=== PATIENT | female | born 1980 | race African-American/Black ===

== ENCOUNTER 2016-07-11 18:39 | Emergency (ER) | payer OTHER ==
--- NOTE | 2016-07-11 19:00 | PDOC ---
Rapid Medical Evaluation Time Seen by Provider: 07/11/16 18:44 Medical Evaluation: 07/11/16 18:59 Pt does not want to be seen at this time
== END 2016-07-11 19:41 | disposition left against medical advice (07) ==
LOC: JER 18:39
DX: Z53.21 Procedure and treatment not carried out due to patient leaving prior to being seen by health care provider (principal)
CPT/HCPCS: 99281-25

== ENCOUNTER 2022-05-01 15:56 | Inpatient (IN) | payer OTHER ==
[2022-05-01] MEDS ORDERED: RAPID SEQUENCE INTUBATION KIT NR ONE (16:00)
[2022-05-01] MEDS ORDERED: MAGNESIUM 1GM/D5W - 1 GM/100 ML IVPB IVPB ONE (16:00)
[2022-05-01] MEDS ORDERED: ALBUTEROL SO4 2.5/IPRATROPIUM 0.5 INH SOL 3 ML VIAL.NEB. NEB ONE ×2 (16:00→20:13)
[2022-05-01] MEDS ORDERED: KETAMINE HCL 500 MG/10 ML VIAL ONE (16:01)
[2022-05-01] MEDS ORDERED: PROPOFOL 1,000,000 MCG/100 ML VIAL ONE (16:14)
[2022-05-01 16:22] LABS: VENOUS BASE EXCESS -8.1 mmol/L (-2-2); VENOUS O2 SATURATION 33.2 % (70-80)
[2022-05-01] MEDS ORDERED: KETAMINE HCL 200 MG/20 ML VIAL IVPUSH ONE (16:23)
[2022-05-01] MEDS ORDERED: ROCURONIUM BROMIDE 50 MG/5 ML VIAL IV ONE (16:24)
[2022-05-01] MEDS ORDERED: EPINEPHrine/PF 1 MG/1 ML (1:1,000) AMPULE ONE (16:24)
[2022-05-01] MEDS ORDERED: DEXAMETHASONE SOD PHOSPHATE 10 MG/1 ML VIAL ONE (16:25)
[2022-05-01] MEDS: PROPOFOL 1,000,000 MCG/100 ML VIAL IVPB SCH (16:30)
[2022-05-01] MEDS: ALBUTEROL SO4 2.5/IPRATROPIUM 0.5 INH SOL 3 ML VIAL.NEB. NEB SCH ×5 (16:30→20:01)
[2022-05-01 16:32] LABS: VENOUS PCO2 > 148.5 mmHg (38-52); VENOUS PH 6.885 (7.310-7.410)
[2022-05-01 16:33] LABS: BASO % 0.5 % (0-2.0); EOS % 13.5 % (0-4.5); HEMATOCRIT 44.1 % (32.4-45.2); HEMOGLOBIN 13.9 GM/dL (10.7-15.3); LYMPH % 35.1 % (8-40); MCH 29.6 pg (25.7-33.7); MCHC 31.5 g/dl (32.0-36.0); MEAN CELL VOLUME 93.8 fl (80-96); MEAN PLT VOLUME 9.2 fl (7.5-11.1); MONO % 8.3 % (3.8-10.2); NEUT % 42.6 % (42.8-82.8); PLATELET COUNT 254 10^3/uL (134-434); RDW 14.5 % (11.6-15.6); WHITE BLOOD COUNT 9.2 K/mm3 (4.0-10.0)
[2022-05-01] MEDS ORDERED: methylPREDNISolone NA SUCC 125 MG/2 ML VIAL IVPUSH ONE (16:37)
[2022-05-01] MEDS ORDERED: MAGNESIUM SULF 50% (8.12 MEQ/2 ML-1 GM VIAL) IVPB ONE (16:37)
[2022-05-01 16:38] LABS: INR 0.92 (0.83-1.09); PROTHROMBIN TIME (PATIENT) 10.6 SEC (9.7-13.0)
[2022-05-01 16:40] LABS: ACTIVATED PTT 31.4 SECONDS (25.2-36.5)
[2022-05-01 16:43] LABS: CALCIUM 9.5 mg/dL (8.5-10.1)
[2022-05-01 16:44] LABS: ALBUMIN 4.3 g/dl (3.4-5.0); BLOOD UREA NITROGEN 11.9 mg/dL (7-18); MAGNESIUM 2.6 mg/dL (1.8-2.4)
[2022-05-01 16:47] LABS: CREATININE 0.7 mg/dL (0.55-1.3)
[2022-05-01 16:49] LABS: BILIRUBIN,TOTAL 0.6 mg/dL (0.2-1); TOT PROT 7.8 g/dl (6.4-8.2)
[2022-05-01 17:24] LABS: ARTERIAL BLD GAS O2 SATURATION 98.7 % (95-98); ARTERIAL BLOOD GAS BASE EXCESS -14.3 mmol/L (-2-2); ARTERIAL BLOOD GAS PO2 269.3 mmHg (80-100)
[2022-05-01] MEDS ORDERED: ALBUTEROL SO4 0.083% IH SOL 2.5 MG/3 ML VIAL.NEB. NEB PRN (17:30)
[2022-05-01 17:31] LABS: ARTERIAL BLOOD GAS PCO2 > 148.50 mmHg (35-45); ARTERIAL BLOOD GAS pH 6.723 (7.350-7.450)
[2022-05-01] MEDS: SODIUM CHLORIDE 1,000 ML IV SCH (17:31)
[2022-05-01 17:36] LABS: ALLENS TEST POSITIVE
[2022-05-01 17:38] LABS: VENT MODE V/AC; VENT RATE 12
[2022-05-01] MEDS ORDERED: SODIUM BICARBONATE 8.4% 50 MEQ/50 ML VIAL IVPUSH ONE (17:43)
[2022-05-01] MEDS ORDERED: SODIUM BICARBONATE 8.4% 50 MEQ/50 ML VIAL ONE (17:55)
[2022-05-01] MEDS ORDERED: hydrALAZINE HCL 20 MG/ML VIAL IVPUSH PRN ×2 (18:00→18:52)
[2022-05-01 18:13] LABS: EPI CELLS 15 /uL (0-25.1); HYALINE CASTS 1 /uL (0-3.1); PH,URINE 6.5 (5.0-8.0); URINE APPEARANCE CLEAR; URINE BACTERIA 97 /uL (0-1359); URINE BILIRUBIN NEGATIVE (NEGATIVE); URINE COLOR YELLOW; URINE GLUCOSE (UA) 2+ (NEGATIVE); URINE KETONE NEGATIVE (NEGATIVE); URINE LEUK ESTERASE NEGATIVE (NEGATIVE); URINE NITRITE NEGATIVE (NEGATIVE); URINE PROTEIN 2+ (NEGATIVE); URINE RBC 10 /uL (0-23.9); URINE WBC 25 /uL (0-25.8)
[2022-05-01] MEDS ORDERED: MIDAZOLAM HCL 5 MG/1 ML Single Dose Vial ONE ×2 (18:22→19:02)
[2022-05-01 18:54] LABS: ARTERIAL BLD GAS O2 SATURATION 97.4 % (95-98); ARTERIAL BLOOD GAS BASE EXCESS -0.5 mmol/L (-2-2); ARTERIAL BLOOD GAS PO2 114.5 mmHg (80-100); ARTERIAL BLOOD GAS pH 7.251 (7.350-7.450)
[2022-05-01 18:55] LABS: ALLENS TEST POSITIVE
[2022-05-01 18:56] LABS: VENT MODE V/AC; VENT RATE 20
[2022-05-01] MEDS ORDERED: MIDAZOLAM HCL 5 MG/1 ML Single Dose Vial IVPUSH ONE (19:00)
[2022-05-01] MEDS ORDERED: MIDAZOLAM IN 0.9 % SOD.CHLORID 1 MG/1 ML PLAST..BAG ONE (19:03)
[2022-05-01] MEDS: MIDAZOLAM IN 0.9 % SOD.CHLORID 100 MG/100 ML PLAST..BAG IVPB SCH (19:13)
[2022-05-01] MEDS: DEXMEDETOMIDINE PREMIX 400 MCG/100 ML BAG IVPB SCH (20:28)
[2022-05-01] MEDS: BUDESONIDE/FORMETEROL FUMARATE 160/4.5 mcg INHALER IH SCH (21:18)
[2022-05-01] MEDS: MUPIROCIN 2% TOPICAL OINTMENT FOR DECOLONIZATION NS SCH (21:18)
[2022-05-01] MEDS: CHLORHEXIDINE GLUCONATE 4% CLEANSER FOR DECOLONIZATION TP SCH (21:18)
[2022-05-01 22:07] LABS: ARTERIAL BLD GAS O2 SATURATION 97.7 % (95-98); ARTERIAL BLOOD GAS BASE EXCESS 0.5 mmol/L (-2-2); ARTERIAL BLOOD GAS PO2 112.4 mmHg (80-100); ARTERIAL BLOOD GAS pH 7.325 (7.350-7.450)
[2022-05-01 22:08] LABS: ALLENS TEST POSITIVE
[2022-05-01 22:09] LABS: VENT MODE A/C; VENT RATE 20
[2022-05-02] MEDS: MIDAZOLAM IN 0.9 % SOD.CHLORID 100 MG/100 ML PLAST..BAG IVPB SCH (02:47)
[2022-05-02 05:56] LABS: ARTERIAL BLD GAS O2 SATURATION 96.3 % (95-98); ARTERIAL BLOOD GAS BASE EXCESS 0.6 mmol/L (-2-2); ARTERIAL BLOOD GAS PO2 88.4 mmHg (80-100)
[2022-05-02 06:00] LABS: ALLENS TEST POSITIVE; VENT MODE A/C; VENT RATE 22
[2022-05-02] MEDS: ALBUTEROL SO4 2.5/IPRATROPIUM 0.5 INH SOL 3 ML VIAL.NEB. NEB SCH ×4 (08:05→20:05)
[2022-05-02 08:28] LABS: HEMATOCRIT 36.4 % (32.4-45.2); HEMOGLOBIN 11.8 GM/dL (10.7-15.3); MCH 29.7 pg (25.7-33.7); MCHC 32.3 g/dl (32.0-36.0); MEAN CELL VOLUME 91.9 fl (80-96); PLATELET COUNT 187 10^3/uL (134-434); RBC 3.96 M/mm3 (3.60-5.2); RDW 14.2 % (11.6-15.6); WHITE BLOOD COUNT 6.9 K/mm3 (4.0-10.0)
[2022-05-02 08:36] LABS: CALCIUM 8.1 mg/dL (8.5-10.1); MAGNESIUM 2.2 mg/dL (1.8-2.4)
[2022-05-02 08:37] LABS: BLOOD UREA NITROGEN 12.6 mg/dL (7-18)
[2022-05-02 08:38] LABS: CREATININE 0.7 mg/dL (0.55-1.3); PHOSPHOROUS 2.3 mg/dL (2.5-4.9)
[2022-05-02 08:39] LABS: TOT PROT 6.3 g/dl (6.4-8.2)
[2022-05-02 08:40] LABS: BILIRUBIN,TOTAL 0.3 mg/dL (0.2-1)
[2022-05-02 08:42] LABS: ALBUMIN 3.4 g/dl (3.4-5.0)
[2022-05-02] MEDS ORDERED: ONDANSETRON 4 MG/2 ML VIAL IVPUSH PRN (08:45)
[2022-05-02] MEDS: methylPREDNISolone NA SUCC 40 MG/1 ML VIAL IVPUSH SCH ×3 (10:01→21:43)
[2022-05-02] MEDS: PANTOPRAZOLE SODIUM 40 MG VIAL IVPUSH SCH (10:01)
[2022-05-02] MEDS: ENOXAPARIN NA (PORCINE) 40 MG/0.4 ML DISP.SYRIN SQ SCH (10:01)
[2022-05-02] MEDS: BUDESONIDE/FORMETEROL FUMARATE 160/4.5 mcg INHALER IH SCH (10:02)
[2022-05-02] MEDS: SODIUM CHLORIDE 1,000 ML IV SCH ×2 (10:02→23:49)
[2022-05-02] MEDS: MUPIROCIN 2% TOPICAL OINTMENT FOR DECOLONIZATION NS SCH ×2 (10:04→22:00)
[2022-05-02] MEDS ORDERED: hydrALAZINE HCL 20 MG/ML VIAL IVPUSH PRN (13:56)
[2022-05-02] MEDS: PROPOFOL 1,000,000 MCG/100 ML VIAL IVPB SCH ×2 (15:12→23:49)
[2022-05-02] MEDS ORDERED: NAPH,MB-DB/K PH,MBDB POWDER PACKET PO ONE (15:19)
[2022-05-02] MEDS: FENTANYL NS IVPB 500 MCG/100 ML BAG IVPB SCH ×2 (17:15→23:50)
[2022-05-02] MEDS ORDERED: MIDAZOLAM IN 0.9 % SOD.CHLORID 0 MG/0 ML PLAST..BAG ONE (21:14)
[2022-05-02] MEDS ORDERED: MIDAZOLAM HCL 2 MG/2 ML SINGLE DOSE VIAL IVPUSH ONE (21:21)
[2022-05-02] MEDS: DEXMEDETOMIDINE PREMIX 400 MCG/100 ML BAG IVPB SCH (21:42)
[2022-05-02] MEDS: CHLORHEXIDINE GLUCONATE 4% CLEANSER FOR DECOLONIZATION TP SCH (22:00)
[2022-05-03] MEDS: methylPREDNISolone NA SUCC 40 MG/1 ML VIAL IVPUSH SCH ×3 (05:37→21:24)
[2022-05-03] MEDS: PROPOFOL 1,000,000 MCG/100 ML VIAL IVPB SCH (05:49)
[2022-05-03] MEDS: DEXMEDETOMIDINE PREMIX 400 MCG/100 ML BAG IVPB SCH (06:57)
[2022-05-03] MEDS: ALBUTEROL SO4 2.5/IPRATROPIUM 0.5 INH SOL 3 ML VIAL.NEB. NEB SCH ×4 (07:39→20:35)
[2022-05-03 07:49] LABS: HEMATOCRIT 36.3 % (32.4-45.2); HEMOGLOBIN 11.7 GM/dL (10.7-15.3); MCH 29.9 pg (25.7-33.7); MCHC 32.2 g/dl (32.0-36.0); MEAN CELL VOLUME 92.7 fl (80-96); MEAN PLT VOLUME 8.7 fl (7.5-11.1); PLATELET COUNT 179 10^3/uL (134-434); RBC 3.92 M/mm3 (3.60-5.2); RDW 14.4 % (11.6-15.6); WHITE BLOOD COUNT 13.1 K/mm3 (4.0-10.0)
[2022-05-03 09:08] LABS: ANISOCYTOSIS 0; HELMET CELLS 0; HOWELL-JOLLY BODIES 0; MACROCYTOSIS 0; OVALOCYTE 0; ROULEAU 0; SICKELED CELLS 0; TARGET CELLS 0; TEAR DROP CELLS 0; TOXIC GRANULATION 0
[2022-05-03 09:23] LABS: ALBUMIN 3.3 g/dl (3.4-5.0); BILIRUBIN,TOTAL 0.3 mg/dL (0.2-1); BLOOD UREA NITROGEN 17.5 mg/dL (7-18); CALCIUM 8.3 mg/dL (8.5-10.1); CREATININE 0.6 mg/dL (0.55-1.3); MAGNESIUM 2.5 mg/dL (1.8-2.4); PHOSPHOROUS 4.2 mg/dL (2.5-4.9); TOT PROT 6.1 g/dl (6.4-8.2)
[2022-05-03] MEDS: ENOXAPARIN NA (PORCINE) 40 MG/0.4 ML DISP.SYRIN SQ SCH (09:34)
[2022-05-03] MEDS: MUPIROCIN 2% TOPICAL OINTMENT FOR DECOLONIZATION NS SCH ×2 (09:35→21:33)
[2022-05-03] MEDS: PANTOPRAZOLE SODIUM 40 MG VIAL IVPUSH SCH (09:36)
[2022-05-03] MEDS ORDERED: LISINOPRIL 5 MG TABLET NGT SCH (10:00)
[2022-05-03] MEDS ORDERED: amLODIPine BESYLATE 5 MG TABLET (FP) NGT SCH (10:00)
[2022-05-03] MEDS ORDERED: amLODIPine BESYLATE 5 MG TABLET (FP) PO SCH (10:00)
[2022-05-03] MEDS ORDERED: amLODIPine BESYLATE 10 MG TABLET (FP) NGT SCH (10:00)
[2022-05-03 16:06] VITALS: BMI 21.7
[2022-05-03] MEDS: CHLORHEXIDINE GLUCONATE 4% CLEANSER FOR DECOLONIZATION TP SCH (21:24)
[2022-05-04] MEDS: methylPREDNISolone NA SUCC 40 MG/1 ML VIAL IVPUSH SCH ×3 (06:29→22:21)
[2022-05-04 07:33] LABS: HEMATOCRIT 37.4 % (32.4-45.2); MCH 29.3 pg (25.7-33.7); MCHC 32.2 g/dl (32.0-36.0); MEAN PLT VOLUME 8.6 fl (7.5-11.1); PLATELET COUNT 200 10^3/uL (134-434); RBC 4.11 M/mm3 (3.60-5.2); RDW 14.4 % (11.6-15.6); WHITE BLOOD COUNT 11.5 K/mm3 (4.0-10.0)
[2022-05-04 07:50] LABS: ALBUMIN 3.5 g/dl (3.4-5.0); BLOOD UREA NITROGEN 15.4 mg/dL (7-18)
[2022-05-04 07:52] LABS: CREATININE 0.6 mg/dL (0.55-1.3)
[2022-05-04 07:54] LABS: BILIRUBIN,TOTAL 0.7 mg/dL (0.2-1); TOT PROT 6.5 g/dl (6.4-8.2)
[2022-05-04] MEDS ORDERED: DEXTROSE 50%-WATER - 25 GM/50 ML VIAL IVPUSH ONE (07:56)
[2022-05-04] MEDS: ALBUTEROL SO4 2.5/IPRATROPIUM 0.5 INH SOL 3 ML VIAL.NEB. NEB SCH ×4 (08:10→20:45)
[2022-05-04] MEDS: LISINOPRIL 5 MG TABLET PO SCH (09:22)
[2022-05-04] MEDS: PANTOPRAZOLE SODIUM 40 MG VIAL IVPUSH SCH (09:22)
[2022-05-04] MEDS: amLODIPine BESYLATE 10 MG TABLET (FP) PO SCH (09:22)
[2022-05-04] MEDS: ENOXAPARIN NA (PORCINE) 40 MG/0.4 ML DISP.SYRIN SQ SCH (09:22)
[2022-05-04] MEDS: MUPIROCIN 2% TOPICAL OINTMENT FOR DECOLONIZATION NS SCH ×2 (09:23→22:20)
[2022-05-04] MEDS: CHLORHEXIDINE GLUCONATE 4% CLEANSER FOR DECOLONIZATION TP SCH (22:20)
[2022-05-05] MEDS: methylPREDNISolone NA SUCC 40 MG/1 ML VIAL IVPUSH SCH (07:56)
[2022-05-05] MEDS: ALBUTEROL SO4 2.5/IPRATROPIUM 0.5 INH SOL 3 ML VIAL.NEB. NEB SCH ×4 (08:44→20:26)
[2022-05-05 10:15] LABS: HEMATOCRIT 40.1 % (32.4-45.2); HEMOGLOBIN 13.1 GM/dL (10.7-15.3); MCH 29.5 pg (25.7-33.7); MCHC 32.7 g/dl (32.0-36.0); MEAN PLT VOLUME 8.4 fl (7.5-11.1); PLATELET COUNT 206 10^3/uL (134-434); RBC 4.45 M/mm3 (3.60-5.2); RDW 13.9 % (11.6-15.6); WHITE BLOOD COUNT 8.2 K/mm3 (4.0-10.0)
[2022-05-05] MEDS: amLODIPine BESYLATE 10 MG TABLET (FP) PO SCH (10:18)
[2022-05-05] MEDS: LISINOPRIL 5 MG TABLET PO SCH (10:18)
[2022-05-05] MEDS: MUPIROCIN 2% TOPICAL OINTMENT FOR DECOLONIZATION NS SCH ×2 (10:18→22:28)
[2022-05-05] MEDS: ENOXAPARIN NA (PORCINE) 40 MG/0.4 ML DISP.SYRIN SQ SCH ×2 (10:18→10:20)
[2022-05-05] MEDS: PANTOPRAZOLE SODIUM 40 MG VIAL IVPUSH SCH (10:19)
[2022-05-05 10:42] LABS: ALBUMIN 3.5 g/dl (3.4-5.0); BLOOD UREA NITROGEN 24.4 mg/dL (7-18); CREATININE 0.7 mg/dL (0.55-1.3); PHOSPHOROUS 3.9 mg/dL (2.5-4.9)
[2022-05-05 10:43] LABS: CALCIUM 9.2 mg/dL (8.5-10.1); TOT PROT 6.7 g/dl (6.4-8.2)
[2022-05-05 10:44] LABS: MAGNESIUM 2.3 mg/dL (1.8-2.4)
[2022-05-05 10:51] LABS: BILIRUBIN,TOTAL 0.9 mg/dL (0.2-1)
[2022-05-05] MEDS ORDERED: methylPREDNISolone NA SUCC 40 MG/1 ML VIAL IVPUSH SCH (22:00)
[2022-05-05] MEDS: predniSONE 20 MG TABLET (UD) PO SCH (22:24)
[2022-05-05] MEDS: CHLORHEXIDINE GLUCONATE 4% CLEANSER FOR DECOLONIZATION TP SCH (22:25)
[2022-05-05 22:57] VITALS: RESP 20
[2022-05-06] MEDS: ALBUTEROL SO4 2.5/IPRATROPIUM 0.5 INH SOL 3 ML VIAL.NEB. NEB SCH ×2 (07:43→11:36)
[2022-05-06 08:10] VITALS: TEMP 98.6
[2022-05-06] MEDS ORDERED: BUDESONIDE/FORMETEROL FUMARATE 80/4.5 mcg INHALER IH SCH (10:00)
[2022-05-06] MEDS: predniSONE 20 MG TABLET (UD) PO SCH (10:11)
[2022-05-06] MEDS: PANTOPRAZOLE SODIUM 40 MG VIAL IVPUSH SCH (10:11)
[2022-05-06] MEDS: ENOXAPARIN NA (PORCINE) 40 MG/0.4 ML DISP.SYRIN SQ SCH (10:11)
[2022-05-06] MEDS: amLODIPine BESYLATE 10 MG TABLET (FP) PO SCH (10:11)
[2022-05-06] MEDS: LISINOPRIL 5 MG TABLET PO SCH (10:11)
[2022-05-06 10:36] LABS: BASO % 0.1 % (0-2.0); EOS % 0.1 % (0-4.5); HEMATOCRIT 39.8 % (32.4-45.2); HEMOGLOBIN 12.7 GM/dL (10.7-15.3); LYMPH % 12.4 % (8-40); MCH 29.1 pg (25.7-33.7); MCHC 31.9 g/dl (32.0-36.0); MEAN CELL VOLUME 91.4 fl (80-96); MEAN PLT VOLUME 8.3 fl (7.5-11.1); NEUT % 79.4 % (42.8-82.8); PLATELET COUNT 191 10^3/uL (134-434); RBC 4.36 M/mm3 (3.60-5.2); RDW 14.1 % (11.6-15.6); WHITE BLOOD COUNT 7.6 K/mm3 (4.0-10.0)
[2022-05-06 10:47] VITALS: BP 120/95
[2022-05-06 11:04] LABS: ALBUMIN 3.3 g/dl (3.4-5.0)
[2022-05-06 11:05] LABS: BLOOD UREA NITROGEN 19.8 mg/dL (7-18); CALCIUM 9.2 mg/dL (8.5-10.1)
[2022-05-06 11:07] LABS: CREATININE 0.7 mg/dL (0.55-1.3)
[2022-05-06 11:08] LABS: TOT PROT 6.2 g/dl (6.4-8.2)
[2022-05-06 11:09] LABS: BILIRUBIN,TOTAL 0.6 mg/dL (0.2-1)
[2022-05-06 11:38] VITALS: PULSE 79
== END 2022-05-06 14:12 | disposition home or self-care (01) | DRG 133 ==
LOC: JER 15:56 → JERBED 18:17 → JICU 19:54 → J8W 05-04 13:17
PROVIDERS: ADMIT Internal Medicine Pulmonary Disease; ATTEND Nurse Practitioner Family
PROC: 0BH17EZ Insertion of Endotracheal Airway into Trachea, Via Natural or Artificial Opening (ICD-10-PCS; principal; 2022-05-01)
PROC: 5A1945Z Respiratory Ventilation, 24-96 Consecutive Hours (ICD-10-PCS; 2022-05-01)
DX: J96.01 Acute respiratory failure with hypoxia (principal); E87.29 Other acidosis; I10 Essential (primary) hypertension; R94.5 Abnormal results of liver function studies; J98.11 Atelectasis; J45.902 Unspecified asthma with status asthmaticus; J82.83 Eosinophilic asthma
CPT/HCPCS: 0241U-QW; 31500; 36415; 36600; 71045-TC-FY; 80053; 81003; 82803; 82962; 83036; 83735; 84100; 84484; 84703; 85025; 85027; 85610; 85730; 87086; 93005; 93010; 94002; 94640; 94761; 99291; 99292

== ENCOUNTER 2022-09-02 07:43 | Observation (INO) | payer OTHER ==
[2022-09-02 07:47] VITALS: BMI 21.2
[2022-09-02] MEDS ORDERED: ACETAMINOPHEN 1000 MG/100 ML BAG IVPB ONE (08:45)
[2022-09-02] MEDS ORDERED: ASPIRIN 81 MG CHEWABLE TABLETS PO ONE (08:47)
[2022-09-02 08:50] LABS: BASO % 0.9 % (0-2.0); HEMATOCRIT 40.3 % (32.4-45.2); HEMOGLOBIN 13.6 GM/dL (10.7-15.3); LYMPH % 31.4 % (8-40); MCHC 33.7 g/dl (32.0-36.0); MEAN CELL VOLUME 91.9 fl (80-96); MEAN PLT VOLUME 7.9 fl (7.5-11.1); MONO % 11.1 % (3.8-10.2); NEUT % 46.6 % (42.8-82.8); PLATELET COUNT 188 10^3/uL (134-434); RBC 4.39 M/mm3 (3.60-5.2); RDW 13.6 % (11.6-15.6); WHITE BLOOD COUNT 5.5 K/mm3 (4.0-10.0)
[2022-09-02 09:14] LABS: POTASSIUM 4.4 mmol/L (3.5-5.1)
[2022-09-02 09:16] LABS: CALCIUM 9.4 mg/dL (8.5-10.1)
[2022-09-02 09:17] LABS: ALBUMIN 4.1 g/dl (3.4-5.0); BLOOD UREA NITROGEN 15.6 mg/dL (7-18); MAGNESIUM 2.1 mg/dL (1.8-2.4)
[2022-09-02 09:20] LABS: CREATININE 0.7 mg/dL (0.55-1.3)
[2022-09-02 09:21] LABS: TOT PROT 7.4 g/dl (6.4-8.2)
[2022-09-02 09:22] LABS: BILIRUBIN,TOTAL 0.4 mg/dL (0.2-1); PHOSPHOROUS 3.5 mg/dL (2.5-4.9)
[2022-09-02 09:23] LABS: N-TERMINAL BNP 13.4 pg/ml (5-125)
[2022-09-02] MEDS ORDERED: MAG HYDROX/AL HYDROX/SIMETH 30 ML UNIT-DOSE CUP PO ONE (10:27)
[2022-09-02] MEDS ORDERED: ACETAMINOPHEN 325 MG TABLET (FP) PO PRN (10:50)
[2022-09-02] MEDS ORDERED: NITROGLYCERIN SUBLINGUAL 1/150 0.4 MG TAB SL PRN (10:50)
[2022-09-02] MEDS ORDERED: MAG HYDROX/AL HYDROX/SIMETH 30 ML UNIT-DOSE CUP PO PRN (10:53)
[2022-09-02] MEDS ORDERED: ALBUTEROL SO4 2.5/IPRATROPIUM 0.5 INH SOL 3 ML VIAL.NEB. NEB PRN (10:55)
[2022-09-02] MEDS ORDERED: ACETAMINOPHEN INJECTION 100 ML IVPB ONE (11:01)
[2022-09-02] MEDS ORDERED: ASPIRIN 81 MG CHEWABLE TABLETS ONE (11:01)
[2022-09-02 11:53] LABS: URINE APPEARANCE CLEAR; URINE BILIRUBIN NEGATIVE (NEGATIVE); URINE COLOR YELLOW; URINE GLUCOSE (UA) NEGATIVE (NEGATIVE); URINE KETONE NEGATIVE (NEGATIVE); URINE LEUK ESTERASE NEGATIVE (NEGATIVE); URINE NITRITE NEGATIVE (NEGATIVE); URINE PROTEIN NEGATIVE (NEGATIVE); URINE UROBILINOGEN 0.2 mg/dL (0.2-1.0)
[2022-09-02 11:58] LABS: METHADONE, UR NEGATIVE (NEGATIVE); PHENCYCLIDINE,URINE NEGATIVE (NEGATIVE); URINE BENZODIAZEPINES NEGATIVE (NEGATIVE)
[2022-09-02 11:59] LABS: COCAINE, UR NEGATIVE (NEGATIVE); OPIATES, URI NEGATIVE (NEGATIVE); URINE BARBITURATES NEGATIVE (NEGATIVE)
[2022-09-02] MEDS: LISINOPRIL 10 MG TABLET PO SCH (12:00)
[2022-09-02 12:01] LABS: URINE AMPHETAMINES NEGATIVE (NEGATIVE)
[2022-09-02] MEDS: BUDESONIDE/FORMETEROL FUMARATE 160/4.5 mcg INHALER IH SCH (21:56)
[2022-09-02] MEDS ORDERED: ATORVASTATIN CA 80 MG TABLET (FP) PO SCH (22:00)
[2022-09-02] MEDS ORDERED: MONTELUKAST NA 10 MG TABLET PO SCH (22:00)
[2022-09-03 07:08] LABS: INR 0.93 (0.83-1.09); PROTHROMBIN TIME (PATIENT) 10.8 SEC (9.7-13.0)
[2022-09-03 07:11] LABS: ACTIVATED PTT 32.2 SECONDS (25.2-36.5)
[2022-09-03 07:13] LABS: BASO % 0.6 % (0-2.0); EOS % 7.6 % (0-4.5); HEMATOCRIT 38.9 % (32.4-45.2); HEMOGLOBIN 12.9 GM/dL (10.7-15.3); LYMPH % 9.5 % (8-40); MCH 30.6 pg (25.7-33.7); MCHC 33.2 g/dl (32.0-36.0); MEAN CELL VOLUME 92.2 fl (80-96); MONO % 9.7 % (3.8-10.2); NEUT % 72.6 % (42.8-82.8); PLATELET COUNT 169 10^3/uL (134-434); RBC 4.22 M/mm3 (3.60-5.2); RDW 13.6 % (11.6-15.6); WHITE BLOOD COUNT 4.3 K/mm3 (4.0-10.0)
[2022-09-03 07:22] LABS: POTASSIUM 4.1 mmol/L (3.5-5.1)
[2022-09-03 07:32] LABS: ALBUMIN 3.7 g/dl (3.4-5.0); BLOOD UREA NITROGEN 17.5 mg/dL (7-18); CALCIUM 8.8 mg/dL (8.5-10.1); MAGNESIUM 1.9 mg/dL (1.8-2.4)
[2022-09-03 07:33] LABS: N-TERMINAL BNP 13.9 pg/ml (5-125)
[2022-09-03 07:35] LABS: CREATININE 0.6 mg/dL (0.55-1.3); PHOSPHOROUS 3.8 mg/dL (2.5-4.9); TOT PROT 6.6 g/dl (6.4-8.2)
[2022-09-03 07:36] LABS: BILIRUBIN,TOTAL 0.7 mg/dL (0.2-1)
[2022-09-03] MEDS: BUDESONIDE/FORMETEROL FUMARATE 160/4.5 mcg INHALER IH SCH (09:09)
[2022-09-03] MEDS: LISINOPRIL 10 MG TABLET PO SCH (09:09)
[2022-09-03] MEDS: ENOXAPARIN NA (PORCINE) 40 MG/0.4 ML DISP.SYRIN SQ SCH ×2 (09:09→09:13)
[2022-09-03 09:27] VITALS: RESP 19
[2022-09-03] MEDS ORDERED: TIOTROPIUM BROMIDE 2.5 MCG (SPIRIVA) RESPIMAT INHALER IH SCH (10:00)
[2022-09-03] MEDS ORDERED: amLODIPine BESYLATE 5 MG TABLET (FP) PO SCH (10:00)
[2022-09-03] MEDS ORDERED: PANTOPRAZOLE 40 MG TABLET PO SCH (10:00)
[2022-09-03] MEDS ORDERED: ASPIRIN COATED 81 MG TABLET.EC PO SCH (10:00)
[2022-09-03 14:26] VITALS: BP 137/94; PULSE 84; TEMP 98.7
== END 2022-09-03 15:40 | disposition home or self-care (01) ==
LOC: JER 07:43 → JERBED 09:44 → J4S 14:16
PROVIDERS: ADMIT Internal Medicine; ATTEND Internal Medicine
PROC: 3E033NZ Introduction of Analgesics, Hypnotics, Sedatives into Peripheral Vein, Percutaneous Approach (ICD-10-PCS; principal; 2022-09-02)
PROC: 3E0F7SF Introduction of Other Gas into Respiratory Tract, Via Natural or Artificial Opening (ICD-10-PCS; 2022-09-02)
DX: R07.89 Other chest pain (principal); I10 Essential (primary) hypertension; J45.40 Moderate persistent asthma, uncomplicated; Z91.148 Patient's other noncompliance with medication regimen for other reason
CPT/HCPCS: 0241U-QW; 36415; 71045-TC-FY; 80053; 80061; 80307; 81003; 82550; 82553; 83036; 83690; 83735; 83880; 84100; 84484; 85025; 85610; 85730; 87086; 93005; 93010; 93306-TC; 94640; 96374; 99285-25; G0378

== ENCOUNTER 2022-09-21 11:49 | Emergency (ER) | payer OTHER ==
[2022-09-21 11:59] VITALS: BMI 21.6
[2022-09-21] MEDS ORDERED: METHOCARBAMOL 500 MG TABLET PO ONE (12:35)
[2022-09-21] MEDS ORDERED: ACETAMINOPHEN 500 MG TABLET (FP) PO ONE (12:35)
[2022-09-21] MEDS ORDERED: KETOROLAC TROMETHAMINE 15 MG/ML VIAL IVPUSH ONE (12:46)
[2022-09-21] MEDS ORDERED: LACTATED RINGERS SOLUTION 1000 ML INFUS.BAG IV ONE (12:47)
[2022-09-21] MEDS ORDERED: diazePAM 5 MG TABLET PO ONE (12:47)
[2022-09-21 13:21] LABS: BASO % 1.4 % (0-2.0); HEMATOCRIT 39.6 % (32.4-45.2); HEMOGLOBIN 13.3 GM/dL (10.7-15.3); LYMPH % 29.8 % (8-40); MCH 30.5 pg (25.7-33.7); MCHC 33.6 g/dl (32.0-36.0); MEAN CELL VOLUME 90.8 fl (80-96); MEAN PLT VOLUME 9.5 fl (7.5-11.1); MONO % 9.1 % (3.8-10.2); NEUT % 50.7 % (42.8-82.8); PLATELET COUNT 244 10^3/uL (134-434); RBC 4.36 M/mm3 (3.60-5.2); RDW 13.6 % (11.6-15.6)
[2022-09-21 13:29] LABS: POTASSIUM 4.8 mmol/L (3.5-5.1)
[2022-09-21 13:31] LABS: CALCIUM 9.2 mg/dL (8.5-10.1)
[2022-09-21 13:32] LABS: ALBUMIN 3.8 g/dl (3.4-5.0); BLOOD UREA NITROGEN 14.4 mg/dL (7-18)
[2022-09-21 13:35] LABS: CREATININE 0.7 mg/dL (0.55-1.3)
[2022-09-21 13:37] LABS: BILIRUBIN,TOTAL 0.5 mg/dL (0.2-1)
[2022-09-21] MEDS ORDERED: KETOROLAC TROMETHAMINE 15 MG/ML VIAL ONE (16:09)
[2022-09-21] MEDS ORDERED: diazePAM 5 MG TABLET ONE (16:09)
[2022-09-21] MEDS ORDERED: ACETAMINOPHEN 500 MG TABLET (FP) ONE (16:09)
[2022-09-21 18:39] VITALS: BP 122/68; PULSE 72; RESP 19; TEMP 98.6
== END 2022-09-21 18:39 | disposition home or self-care (01) ==
LOC: JERFT 11:49 → JER 11:49
PROC: 3E0333Z Introduction of Anti-inflammatory into Peripheral Vein, Percutaneous Approach (ICD-10-PCS; principal; 2022-09-21)
DX: M54.9 Dorsalgia, unspecified (principal); M79.605 Pain in left leg; R50.9 Fever, unspecified; R10.9 Unspecified abdominal pain; R20.2 Paresthesia of skin; M79.10 Myalgia, unspecified site; V89.3XXA Person injured in unspecified nonmotor-vehicle accident, traffic, initial encounter; Y93.I9 Activity, other involving external motion; Y92.410 Unspecified street and highway as the place of occurrence of the external cause
CPT/HCPCS: 36415; 70450-TC; 71260-TC; 72125-TC; 72128-TC; 72131-TC; 73562-TC-LT-FY; 74177-TC; 80053; 84703; 85025; 86850; 86900; 86901; 99285-25; Q9967

== ENCOUNTER 2023-04-10 12:43 | Emergency (ER) | payer OTHER ==
[2023-04-10 13:18] VITALS: BMI 21.6
[2023-04-10] MEDS ORDERED: SODIUM CHLORIDE 0.9% 500 ML INFUS.BAG IV ONE (13:23)
[2023-04-10] MEDS ORDERED: methylPREDNISolone NA SUCC 125 MG/2 ML VIAL IVPB ONE (13:23)
[2023-04-10] MEDS ORDERED: methylPREDNISolone NA SUCC 125 MG/2 ML VIAL ONE (13:54)
[2023-04-10] MEDS ORDERED: ALBUTEROL SO4 2.5/IPRATROPIUM 0.5 INH SOL 3 ML VIAL.NEB. NEB ONE ×2 (13:54→14:34)
[2023-04-10] MEDS: ALBUTEROL SO4 2.5/IPRATROPIUM 0.5 INH SOL 3 ML VIAL.NEB. NEB SCH ×4 (14:15→15:08)
[2023-04-10 14:17] LABS: VENOUS BASE EXCESS 2.5 mmol/L (-2-2); VENOUS O2 SATURATION 74.4 % (70-80); VENOUS PCO2 48.1 mmHg (38-52); VENOUS PH 7.387 (7.310-7.410)
[2023-04-10 14:21] LABS: BASO % 0.7 % (0-2.0); EOS % 7.3 % (0-4.5); HEMATOCRIT 38.1 % (32.4-45.2); HEMOGLOBIN 12.2 GM/dL (10.7-15.3); LYMPH % 16.5 % (8-40); MCH 29.2 pg (25.7-33.7); MEAN CELL VOLUME 91.3 fl (80-96); MEAN PLT VOLUME 8.3 fl (7.5-11.1); MONO % 13.3 % (3.8-10.2); NEUT % 62.2 % (42.8-82.8); PLATELET COUNT 161 10^3/uL (134-434); RBC 4.18 M/mm3 (3.60-5.2); WHITE BLOOD COUNT 3.5 K/mm3 (4.0-10.0)
[2023-04-10 15:37] LABS: POTASSIUM 3.9 mmol/L (3.5-5.1)
[2023-04-10 15:39] LABS: ALBUMIN 3.5 g/dl (3.4-5.0); BLOOD UREA NITROGEN 9.7 mg/dL (7-18); CALCIUM 8.4 mg/dL (8.5-10.1)
[2023-04-10 15:42] LABS: CREATININE 0.7 mg/dL (0.55-1.3)
[2023-04-10 15:44] LABS: BILIRUBIN,TOTAL 0.8 mg/dL (0.2-1); TOT PROT 6.5 g/dl (6.4-8.2)
[2023-04-10 15:47] LABS: N-TERMINAL BNP 62.6 pg/ml (5-125)
[2023-04-10 16:06] LABS: ARTERIAL BLD GAS O2 SATURATION 83.6 % (95-98); ARTERIAL BLOOD GAS BASE EXCESS -0.6 mmol/L (-2-2); ARTERIAL BLOOD GAS PO2 47.7 mmHg (80-100); ARTERIAL BLOOD GAS pH 7.399 (7.350-7.450)
[2023-04-10 16:08] LABS: ALLENS TEST POSITIVE
[2023-04-10 19:08] VITALS: BP 162/85; PULSE 85; RESP 18; TEMP 98
== END 2023-04-10 19:08 | disposition home or self-care (01) ==
LOC: JER 12:43
PROC: 3E033GC Introduction of Other Therapeutic Substance into Peripheral Vein, Percutaneous Approach (ICD-10-PCS; principal; 2023-04-10)
PROC: 3E0F7GC Introduction of Other Therapeutic Substance into Respiratory Tract, Via Natural or Artificial Opening (ICD-10-PCS; 2023-04-10)
DX: R06.02 Shortness of breath (principal); M54.9 Dorsalgia, unspecified; R68.83 Chills (without fever); M79.604 Pain in right leg; M79.605 Pain in left leg; J06.9 Acute upper respiratory infection, unspecified; J45.901 Unspecified asthma with (acute) exacerbation; Z20.822 Contact with and (suspected) exposure to COVID-19
CPT/HCPCS: 0241U-QW; 36415; 36600; 71045-TC-FY; 80053; 82375; 82803; 83605; 83880; 84484; 85025; 93005; 93010; 99285-25

== ENCOUNTER 2023-05-08 19:30 | Observation (INO) | payer OTHER ==
[2023-05-08] MEDS ORDERED: ACETAMINOPHEN 1000 MG/100 ML BAG IVPB ONE (20:29)
[2023-05-08] MEDS ORDERED: SODIUM CHLORIDE 0.9% 500 ML INFUS.BAG IV ONE (20:29)
[2023-05-08] MEDS ORDERED: ACETAMINOPHEN INJECTION 100 ML IVPB ONE (21:17)
[2023-05-08 21:29] LABS: BASO % 0.7 % (0-2.0); EOS % 2.5 % (0-4.5); HEMATOCRIT 36.9 % (32.4-45.2); HEMOGLOBIN 12.1 GM/dL (10.7-15.3); LYMPH % 7.7 % (8-40); MCH 29.3 pg (25.7-33.7); MCHC 32.8 g/dl (32.0-36.0); MEAN CELL VOLUME 89.3 fl (80-96); MEAN PLT VOLUME 8.5 fl (7.5-11.1); MONO % 15.4 % (3.8-10.2); NEUT % 73.7 % (42.8-82.8); PLATELET COUNT 155 10^3/uL (134-434); RBC 4.13 M/mm3 (3.60-5.2); RDW 14.6 % (11.6-15.6); WHITE BLOOD COUNT 7.1 K/mm3 (4.0-10.0)
[2023-05-08 21:41] LABS: POTASSIUM 4.4 mmol/L (3.5-5.1)
[2023-05-08 21:43] LABS: BLOOD UREA NITROGEN 13.7 mg/dL (7-18); CALCIUM 8.7 mg/dL (8.5-10.1)
[2023-05-08 21:44] LABS: ALBUMIN 3.8 g/dl (3.4-5.0); MAGNESIUM 1.4 mg/dL (1.8-2.4)
[2023-05-08 21:46] LABS: CREATININE 0.8 mg/dL (0.55-1.3)
[2023-05-08 21:48] LABS: BILIRUBIN,TOTAL 0.5 mg/dL (0.2-1); TOT PROT 6.8 g/dl (6.4-8.2)
[2023-05-08] MEDS ORDERED: MAGNESIUM SULFATE IN WATER 2 GM/50 ML IVPB IVPB ONE ×2 (21:49→22:05)
[2023-05-09 00:06] LABS: URINE APPEARANCE CLEAR; URINE BILIRUBIN NEGATIVE (NEGATIVE); URINE COLOR YELLOW; URINE GLUCOSE (UA) NEGATIVE (NEGATIVE); URINE KETONE 3+ (NEGATIVE); URINE LEUK ESTERASE NEGATIVE (NEGATIVE); URINE NITRITE NEGATIVE (NEGATIVE); URINE PROTEIN TRACE (NEGATIVE)
[2023-05-09] MEDS ORDERED: amLODIPine BESYLATE 10 MG TABLET (FP) PO ONE (00:11)
[2023-05-09 00:15] LABS: EPI CELLS 17 /uL (0-25.1); HYALINE CASTS 0 /uL (0-3.1); URINE BACTERIA 117 /uL (0-1359); URINE RBC 16 /uL (0-23.9); URINE WBC 5 /uL (0-25.8)
[2023-05-09 00:38] LABS: HCG,QUALITATIVE URINE NEGATIVE
[2023-05-09] MEDS ORDERED: amLODIPine BESYLATE 10 MG TABLET (FP) ONE ×2 (00:50→09:05)
[2023-05-09] MEDS ORDERED: ALBUTEROL SO4 HFA INHALER IH PRN (02:51)
[2023-05-09] MEDS ORDERED: MONTELUKAST NA 10 MG TABLET PO PRN (02:54)
[2023-05-09] MEDS ORDERED: REMDESIVIR 200 MG in SODIUM CHLORIDE 250 ML IVPB ONE ×2 (05:00→06:30)
[2023-05-09] MEDS: methylPREDNISolone NA SUCC 40 MG/1 ML VIAL IVPUSH SCH ×4 (05:39→15:39)
[2023-05-09] MEDS: ALBUTEROL SO4 HFA INHALER IH SCH ×6 (05:39→23:07)
[2023-05-09 08:29] LABS: HEMATOCRIT 39.6 % (32.4-45.2); HEMOGLOBIN 12.9 GM/dL (10.7-15.3); MCH 29.5 pg (25.7-33.7); MCHC 32.7 g/dl (32.0-36.0); MEAN CELL VOLUME 90.1 fl (80-96); MEAN PLT VOLUME 8.4 fl (7.5-11.1); PLATELET COUNT 150 10^3/uL (134-434); RBC 4.39 M/mm3 (3.60-5.2); RDW 14.9 % (11.6-15.6); WHITE BLOOD COUNT 4.4 K/mm3 (4.0-10.0)
[2023-05-09 08:47] LABS: CALCIUM 8.9 mg/dL (8.5-10.1)
[2023-05-09 08:48] LABS: ALBUMIN 3.8 g/dl (3.4-5.0); BILIRUBIN,TOTAL 0.6 mg/dL (0.2-1); BLOOD UREA NITROGEN 10.4 mg/dL (7-18)
[2023-05-09 08:52] LABS: CREATININE 0.7 mg/dL (0.55-1.3)
[2023-05-09 08:54] LABS: TOT PROT 7.1 g/dl (6.4-8.2)
[2023-05-09] MEDS ORDERED: HYDROCHLOROTHIAZIDE 25 MG TABLET (FP) ONE (09:04)
[2023-05-09] MEDS ORDERED: ENOXAPARIN NA (PORCINE) 40 MG/0.4 ML DISP.SYRIN SQ ONE (09:05)
[2023-05-09] MEDS ORDERED: LOSARTAN POTASSIUM 50 MG TABLET ONE (09:05)
[2023-05-09] MEDS ORDERED: methylPREDNISolone NA SUCC 40 MG/1 ML VIAL ONE ×2 (09:40→15:50)
[2023-05-09] MEDS: HYDROCHLOROTHIAZIDE 12.5 MG CAPSULE (FP) PO SCH (09:53)
[2023-05-09] MEDS: amLODIPine BESYLATE 10 MG TABLET (FP) PO SCH (09:54)
[2023-05-09] MEDS: TIOTROPIUM BROMIDE 2.5 MCG (SPIRIVA) RESPIMAT INHALER IH SCH (09:54)
[2023-05-09] MEDS: BUDESONIDE/FORMETEROL FUMARATE 80/4.5 mcg INHALER IH SCH ×2 (09:54→22:26)
[2023-05-09] MEDS: ENOXAPARIN NA (PORCINE) 40 MG/0.4 ML DISP.SYRIN SQ SCH (09:54)
[2023-05-09] MEDS ORDERED: LOSARTAN POTASSIUM 50 MG TABLET PO SCH (10:00)
[2023-05-09] MEDS ORDERED: ACETAMINOPHEN 1000 MG/100 ML BAG IVPB PRN (10:51)
[2023-05-09] MEDS ORDERED: LOSARTAN POTASSIUM 50 MG TABLET PO ONE (10:55)
[2023-05-09 20:42] VITALS: BMI 21.4
[2023-05-09] MEDS: MONTELUKAST NA 10 MG TABLET PO SCH (21:38)
[2023-05-10] MEDS: ALBUTEROL SO4 HFA INHALER IH SCH ×6 (03:50→23:46)
[2023-05-10] MEDS: LOSARTAN POTASSIUM 50 MG TABLET PO SCH (10:41)
[2023-05-10] MEDS: amLODIPine BESYLATE 10 MG TABLET (FP) PO SCH (10:41)
[2023-05-10] MEDS: HYDROCHLOROTHIAZIDE 12.5 MG CAPSULE (FP) PO SCH (10:42)
[2023-05-10] MEDS: ENOXAPARIN NA (PORCINE) 40 MG/0.4 ML DISP.SYRIN SQ SCH ×2 (10:42→12:24)
[2023-05-10] MEDS: REMDESIVIR 100 MG in SODIUM CHLORIDE 250 ML IVPB SCH (10:43)
[2023-05-10] MEDS: BUDESONIDE/FORMETEROL FUMARATE 80/4.5 mcg INHALER IH SCH ×2 (10:57→21:40)
[2023-05-10] MEDS: TIOTROPIUM BROMIDE 2.5 MCG (SPIRIVA) RESPIMAT INHALER IH SCH (12:11)
[2023-05-10] MEDS: MONTELUKAST NA 10 MG TABLET PO SCH (21:39)
[2023-05-11] MEDS: ALBUTEROL SO4 HFA INHALER IH SCH ×3 (03:40→12:00)
[2023-05-11] MEDS: REMDESIVIR 100 MG in SODIUM CHLORIDE 250 ML IVPB SCH (11:39)
[2023-05-11] MEDS: amLODIPine BESYLATE 10 MG TABLET (FP) PO SCH (11:42)
[2023-05-11] MEDS: HYDROCHLOROTHIAZIDE 12.5 MG CAPSULE (FP) PO SCH (11:42)
[2023-05-11] MEDS: LOSARTAN POTASSIUM 50 MG TABLET PO SCH (11:42)
[2023-05-11] MEDS: ENOXAPARIN NA (PORCINE) 40 MG/0.4 ML DISP.SYRIN SQ SCH (11:43)
[2023-05-11] MEDS: TIOTROPIUM BROMIDE 2.5 MCG (SPIRIVA) RESPIMAT INHALER IH SCH (11:50)
[2023-05-11] MEDS: BUDESONIDE/FORMETEROL FUMARATE 80/4.5 mcg INHALER IH SCH (11:52)
[2023-05-11 11:56] VITALS: RESP 18
[2023-05-11 14:04] VITALS: BP 128/70; PULSE 79; TEMP 97.1
== END 2023-05-11 13:15 | disposition home or self-care (01) ==
LOC: JER 19:30 → JERBED 05-09 01:28 → J4S 05-09 19:57
PROVIDERS: ADMIT Internal Medicine
PROC: 3E033GC Introduction of Other Therapeutic Substance into Peripheral Vein, Percutaneous Approach (ICD-10-PCS; principal; 2023-05-09)
PROC: 3E0337Z Introduction of Electrolytic and Water Balance Substance into Peripheral Vein, Percutaneous Approach (ICD-10-PCS; 2023-05-09)
PROC: 3E033NZ Introduction of Analgesics, Hypnotics, Sedatives into Peripheral Vein, Percutaneous Approach (ICD-10-PCS; 2023-05-09)
DX: U07.1 COVID-19 (principal); J45.40 Moderate persistent asthma, uncomplicated; I16.0 Hypertensive urgency; R94.31 Abnormal electrocardiogram [ECG] [EKG]; R07.9 Chest pain, unspecified; M79.10 Myalgia, unspecified site; R50.9 Fever, unspecified; Z87.891 Personal history of nicotine dependence
CPT/HCPCS: 0241U-QW; 36415; 71045-TC-FY; 80053; 81003; 82550; 83735; 84484; 84703; 85025; 85027; 93005; 93010; 96365; 96367; 96375; 96376; 99291; 99292; G0378; J0248

== ENCOUNTER 2023-12-17 07:17 | Emergency (ER) | payer OTHER ==
[2023-12-17 07:28] VITALS: PULSE 92; RESP 20; TEMP 98.4; BMI 22.3
[2023-12-17] MEDS ORDERED: ALBUTEROL SO4 2.5/IPRATROPIUM 0.5 INH SOL 3 ML VIAL.NEB. NEB ONE (07:32)
[2023-12-17] MEDS ORDERED: DEXAMETHASONE SOD PHOSPHATE 10 MG/1 ML VIAL ONE (08:03)
[2023-12-17] MEDS ORDERED: amLODIPine BESYLATE 10 MG TABLET (FP) ONE (08:03)
[2023-12-17] MEDS: amLODIPine BESYLATE 10 MG TABLET (FP) PO ONE (08:18)
[2023-12-17] MEDS: DEXAMETHASONE 4 MG TABLET (FP) PO ONE (08:18)
[2023-12-17 09:00] VITALS: BP 168/108
[2023-12-17] MEDS: LOSARTAN 50MG/HCTZ 12.5MG 1 TAB PO ONE (09:19)
== END 2023-12-17 09:21 | disposition home or self-care (01) ==
LOC: JER 07:17
DX: J45.41 Moderate persistent asthma with (acute) exacerbation (principal); R06.02 Shortness of breath; R05.9 Cough, unspecified; I10 Essential (primary) hypertension
CPT/HCPCS: 71045-TC-FY; 99291

== ENCOUNTER 2024-02-28 11:30 | Emergency (ER) | payer OTHER ==
[2024-02-28 11:34] VITALS: TEMP 98.4; BMI 21.6
[2024-02-28] MEDS ORDERED: ALBUTEROL SO4 2.5/IPRATROPIUM 0.5 INH SOL 3 ML VIAL.NEB. NEB ONE (11:36)
[2024-02-28] MEDS ORDERED: methylPREDNISolone NA SUCC 125 MG/2 ML VIAL ONE (11:52)
[2024-02-28] MEDS: ALBUTEROL SO4 2.5/IPRATROPIUM 0.5 INH SOL 3 ML VIAL.NEB. NEB ONE (11:56)
[2024-02-28] MEDS: methylPREDNISolone NA SUCC 125 MG/2 ML VIAL IVPB ONE (12:02)
[2024-02-28] MEDS ORDERED: ALBUTEROL SO4 0.083% IH SOL 2.5 MG/3 ML VIAL.NEB. NEB ONE (13:37)
[2024-02-28] MEDS: ALBUTEROL SO4 0.083% IH SOL 2.5 MG/3 ML VIAL.NEB. NEB ONE (13:45)
[2024-02-28 14:32] VITALS: BP 159/100; PULSE 100; RESP 17
== END 2024-02-28 14:46 | disposition home or self-care (01) ==
LOC: JER 11:30
PROC: 3E033GC Introduction of Other Therapeutic Substance into Peripheral Vein, Percutaneous Approach (ICD-10-PCS; principal; 2024-02-28)
PROC: 3E0F7GC Introduction of Other Therapeutic Substance into Respiratory Tract, Via Natural or Artificial Opening (ICD-10-PCS; 2024-02-28)
PROC: 3E0F7GC Introduction of Other Therapeutic Substance into Respiratory Tract, Via Natural or Artificial Opening (ICD-10-PCS; 2024-02-28)
DX: J45.901 Unspecified asthma with (acute) exacerbation (principal); R06.02 Shortness of breath
CPT/HCPCS: 93005; 93010; 99284-25

== ENCOUNTER 2024-07-08 14:58 | Observation (INO) | payer OTHER ==
[2024-07-08] MEDS ORDERED: ACETAMINOPHEN 500 MG TABLET (FP) ONE (15:50)
[2024-07-08] MEDS: ACETAMINOPHEN 500 MG TABLET (FP) PO ONE (15:54)
[2024-07-08 15:59] VITALS: BMI 21.6
[2024-07-08 16:44] LABS: BASO % 1.1 % (0-2.0); EOS % 5.9 % (0-4.5); HEMOGLOBIN 13.2 GM/dL (10.7-15.3); LYMPH % 23.3 % (8-40); MCH 30.3 pg (25.7-33.7); MEAN CELL VOLUME 91.7 fl (80-96); MEAN PLT VOLUME 8.1 fl (7.5-11.1); MONO % 19.3 % (3.8-10.2); NEUT % 50.4 % (42.8-82.8); PLATELET COUNT 161 10^3/uL (134-434); RBC 4.36 M/mm3 (3.60-5.2); RDW 13.3 % (11.6-15.6); WHITE BLOOD COUNT 3.2 K/mm3 (4.0-10.0)
[2024-07-08 17:10] LABS: POTASSIUM 4.1 mmol/L (3.5-5.1)
[2024-07-08 17:12] LABS: CALCIUM 9.2 mg/dL (8.5-10.1); MAGNESIUM 1.9 mg/dL (1.8-2.4)
[2024-07-08 17:13] LABS: BLOOD UREA NITROGEN 13.9 mg/dL (7-18)
[2024-07-08 17:15] LABS: PHOSPHOROUS 3.5 mg/dL (2.5-4.9)
[2024-07-08 17:16] LABS: CREATININE 0.7 mg/dL (0.55-1.3)
[2024-07-08 17:17] LABS: BILIRUBIN,TOTAL 0.6 mg/dL (0.2-1); TOT PROT 6.9 g/dl (6.4-8.2)
[2024-07-08 17:20] VITALS: RESP 18
[2024-07-08] MEDS ORDERED: LABETALOL HCL 20 MG/4 ML VIAL ONE (17:23)
[2024-07-08] MEDS: LABETALOL HCL 20 MG/4 ML VIAL IVPUSH ONE ×2 (18:05→23:46)
[2024-07-08 18:07] LABS: HIV INTERPRETATION NEGATIVE (NEGATIVE)
[2024-07-08] MEDS ORDERED: ASPIRIN 81 MG CHEWABLE TABLETS ONE (18:57)
[2024-07-08] MEDS: ASPIRIN 81 MG CHEWABLE TABLETS PO ONE (19:03)
[2024-07-08] MEDS ORDERED: predniSONE 20 MG TABLET (UD) PO SCH ×2 (21:00)
[2024-07-08] MEDS ORDERED: predniSONE 20 MG TABLET (UD) ONE (21:19)
[2024-07-08] MEDS: predniSONE 20 MG TABLET (UD) PO SCH (21:48)
[2024-07-08] MEDS ORDERED: LABETALOL HCL 100 MG TABLET (FP) PO SCH (22:45)
[2024-07-09] MEDS ORDERED: ACETAMINOPHEN 1000 MG/100 ML BAG IVPB PRN (00:11)
[2024-07-09] MEDS ORDERED: LOSARTAN POTASSIUM 50 MG TABLET PO SCH ×4 (00:50→10:00)
[2024-07-09] MEDS: LOSARTAN POTASSIUM 50 MG TABLET PO ONE ×2 (01:30→06:13)
[2024-07-09] MEDS: hydrALAZINE HCL 20 MG/ML VIAL IVPUSH ONE (04:24)
[2024-07-09] MEDS: HYDROCHLOROTHIAZIDE 25 MG TABLET (FP) PO SCH (08:57)
[2024-07-09] MEDS: LOSARTAN POTASSIUM 50 MG TABLET PO SCH (08:57)
[2024-07-09] MEDS: ENOXAPARIN NA (PORCINE) 40 MG/0.4 ML DISP.SYRIN SQ SCH (09:17)
[2024-07-09] MEDS ORDERED: SODIUM CHLORIDE 1,000 ML IV SCH (09:30)
[2024-07-09] MEDS ORDERED: PATIENT'S OWN MEDICATION (NON-FORMULARY) (Losartan/Hydrochlorothiazide [Losartan-Hctz 100- PO SCH (10:00)
[2024-07-09] MEDS ORDERED: HYDROCHLOROTHIAZIDE 25 MG TABLET (FP) PO SCH (10:00)
[2024-07-09 15:12] VITALS: BP 155/107; PULSE 104; TEMP 98.6
[2024-07-09] MEDS: PREDNISONE PO ONE (15:23)
[2024-07-09] MEDS ORDERED: PREDNISONE PO SCH (21:00)
[2024-07-10] MEDS ORDERED: EPLERENONE 25 MG TABLET PO ONE (14:30)
[2024-07-10] MEDS ORDERED: predniSONE 10 MG TABLET (UD) PO SCH (21:00)
[2024-07-11] MEDS ORDERED: predniSONE 5 MG, predniSONE 20 MG PO SCH (21:00)
[2024-07-12] MEDS ORDERED: predniSONE 20 MG TABLET (UD) PO SCH (21:00)
[2024-07-13] MEDS ORDERED: predniSONE 10 MG TABLET (UD) PO SCH (21:00)
== END 2024-07-09 15:35 | disposition home or self-care (01) ==
LOC: JER 14:58 → JERBED 20:00 → J4S 22:50
PROVIDERS: ADMIT Student in an Organized Health Care Education/Training Program; ATTEND Internal Medicine
PROC: 3E033GC Introduction of Other Therapeutic Substance into Peripheral Vein, Percutaneous Approach (ICD-10-PCS; principal; 2024-07-08)
PROC: 3E0337Z Introduction of Electrolytic and Water Balance Substance into Peripheral Vein, Percutaneous Approach (ICD-10-PCS; 2024-07-08)
DX: I16.0 Hypertensive urgency (principal); J45.901 Unspecified asthma with (acute) exacerbation; Z72.0 Tobacco use
CPT/HCPCS: 0241U-QW; 36415; 71045-TC-FY; 80053; 82550; 82553; 83735; 84100; 84439; 84443; 84479; 84484; 84703; 85025; 86803; 87389; 93005; 93010; 96361; 96374; 96375; 96376; 99285-25; G0378